=== PATIENT | male | born 1975 | race Caucasian/White ===

== ENCOUNTER 2019-07-12 14:28 | Outpatient (CLI) | payer BC ==
[~2019-07-12 14:28] MED LIST: Iopamidol 370 76% 100 ML VIAL ONE
--- NOTE | 2019-07-12 15:35 | CT ---
CT ABDOMEN AND PELVIS WITH IV CONTRAST 07/12/2019 CLINICAL INFORMATION: Crohn's disease. History of prior bowel resection. COMPARISON: None. Technique: Multiple contiguous axial CT images are obtained through the abdomen and pelvis with IV contrast. Cor onal reformatted images are provided. FINDINGS: Lower Chest: Minimal nonspecific pleural-based nodular density seen posterior left lung base. Lung ba ses are otherwise clear. Vessels: Minimal intimal thickening is seen involving the abdominal aorta. The abdominal aorta is nor mal in caliber. Abdomen: Portal vein:Patent Gallbladder: Within normal limits for CT imaging. Liver: within normal limits. Spleen: within normal limits. Pancreas: within normal limits. Adrenals: within normal limits. Kidneys: Subcentimeter too small to characterize hypodense lesion midportion right kidney. Kidneys ot herwise have a normal CT appearance. Bowel: Evidence of prior small bowel resection with small bowel colonic anastomosis seen in the right mid abdomen. Postoperative changes are seen adjacent to the ascending colon. Loops of small bowel are normal in caliber without thickening of loops of small bowel seen. The colon is decompressed, but there is suggested thickening of the alexandra of the colon especially involving the ascending colon and greater in the region of the sigmoid colon extending to the rectum. Appendix: Not visualized. Peritoneum/retroperitoneum: There is stranding within the lower central pelvis and in the right lower quadrant which may be attributable to scarring and prior postoperative changes. However, inflammatory changes cannot be entirely excluded. Scattered nonspecific lymph nodes are seen througho ut the mesentery and in the right lower quadrant and upper pelvis. No enlarged lymph nodes are seen by CT size criteria. Largest lymph node is seen in the mid pelvis measuring 9 mm in short axis dimens ion. Abdominal Wall: Scarring in an infraumbilical location and to the right of the umbilicus. Pelvis: Reproductive Organs: No pelvic masses. Bladder: Incompletely distended. Bones: No suspicious lytic or sclerotic osseous lesions are identified. IMPRESSION: 1. Postoperative changes related to prior small bowel resection. No bowel wall thickening is apprecia uriel involving loops of small bowel. 2. The colon is decompressed with suggested wall thickening diffusely but greater involving the sigmo id colon and extending to the rectum. There is stranding seen in the lower pelvis adjacent to the sigmoid colon, and this is just above the level of surgical clips. These findings may be postoperativ e in origin and related to scarring as opposed to inflammatory changes; although, inflammatory changes are a possibility. While the greater degree of thickening in the sigmoid colon extending to t he rectum could be due to incomplete distention, inflammatory bowel disease or colitis is a possibility. If prior studies are available for direct comparison, this would be helpful for further evaluation. 3. Scattered nonspecific nonenlarged mesenteric lymph nodes.
== END 2019-07-12 14:29 | disposition home or self-care (01) ==
LOC: BICCT 14:28
PROVIDERS: ATTEND Internal Medicine
DX: K50.00 Crohn's disease of small intestine without complications (principal); Z98.890 Other specified postprocedural states
CPT/HCPCS: 74177; Q9967